=== PATIENT | male | born 1990 | race African-American/Black ===

== ENCOUNTER 2023-11-21 11:27 | Emergency (ER) | payer MEDICAID ==
[~2023-11-21] VITALS: Ht 188 cm; Wt 104.3 kg
[2023-11-21 15:41] VITALS: BP 132/87; PULSE 87; RESP 17; TEMP 97.8; O2SAT 97
== END 2023-11-21 15:40 | disposition home or self-care (01) ==
LOC: ER 11:27
DX: S09.90XA Unspecified injury of head, initial encounter (principal); W20.8XXA Other cause of strike by thrown, projected or falling object, initial encounter; Y93.89 Activity, other specified; Y92.89 Other specified places as the place of occurrence of the external cause; Y99.8 Other external cause status
CPT/HCPCS: 70450

== ENCOUNTER 2024-06-07 08:53 | Inpatient (IN) | payer MEDICAID, OTHER ==
[~2024-06-07] VITALS: Ht 188 cm; Wt 106.0 kg
[2024-06-07 09:31] LABS: Basophils # (auto) 0 10 ^3/uL (0-0.2); Basophils % (auto) 0.5 % (0.0-2.0); Eosinophils # (auto) 0.1 10 ^3/uL (0-0.8); Eosinophils % (auto) 1.5 % (0.0-7.0); Hematocrit 49.1 % (41.0-53.0); Hemoglobin 16.8 g/dL (13.5-17.5); Lymphocytes # (auto) 3.5 10 ^3/uL (0.4-5.4); Lymphocytes % (auto) 38.8 % (10.0-50.0); Mean Corpuscular Hemoglobin 31.8 pg (28.0-32.0); Mean Corpuscular Hgb Conc. 34.3 g/dL (32.0-36.0); Mean Corpuscular Volume 92.7 fL (80.0-100.0); Monocytes # (auto) 0.6 10 ^3/uL (0-1.3); Monocytes % (auto) 6.5 % (0.0-12.0); Neutrophils # (auto) 4.7 10 ^3/uL (1.6-8.6); Neutrophils % (auto) 52.7 % (37.0-80.0); Nucleated Red Blood Cells % 0.1 %; Platelet Count (auto) 245 10^3/uL (140-450); Red Blood Cells 5.29 10^6/uL (4.5-5.90); Red Cell Distribution Width 13.3 % (11.8-14.3); White Blood Cell 8.9 10^3/uL (4.4-10.8)
[2024-06-07] MEDS: SODIUM CHLORIDE 0.9% 1,000 ML IV ONE ×2 (10:15→10:52)
[2024-06-07 10:18] LABS: Chloride 104 mmol/L (98-107); Potassium 3.7 mmol/L (3.5-5.1); Sodium 139 mmol/L (136-145)
[2024-06-07 10:19] LABS: Anion Gap 5 (5-15); Calcium 9.8 mg/dL (8.7-10.4); Carbon Dioxide 30 mmol/L (20-30)
[2024-06-07 10:24] LABS: BUN/Creatinine Ratio 7.5 (10.0-20.0); Blood Urea Nitrogen 8 mg/dL (9-23); Glucose 86 mg/dL (74-106)
[2024-06-07 10:38] VITALS: PULSE 67; RESP 16; O2SAT 97
[2024-06-07] MEDS: THIAMINE 100mg/ml INJ (200mg/2ml VIAL) IV ONE (10:52)
[2024-06-07 13:59] LABS: Amphetamine Screen, Urine Neg (NEGATIVE); Barbiturate Scree,Urine Neg (NEGATIVE); Benzodiazephine Screen, Urine Neg (NEGATIVE); Cannabinoid Screen, Urine Pos (NEGATIVE); Cocaine Screen, Urine Neg (NEGATIVE); Opiate Scree,Urine Neg (NEGATIVE); Phencyclidine Screen, Urine Neg (NEGATIVE)
[2024-06-07] MEDS ORDERED: HYDROmorphone HCL 2 MG/ML VL/or syr IV PRN (14:30)
[2024-06-07] MEDS ORDERED: ONDANSETRON HCL 4 MG/2 ML VIAL IV PRN (14:30)
[2024-06-07] MEDS ORDERED: DOCUSATE SOD 100 MG CAP PO PRN (14:30)
[2024-06-07] MEDS ORDERED: ACETAMINOPHEN 325 MG TAB PO PRN (14:30)
[2024-06-07] MEDS ORDERED: LORazepam 2MG/ML-1ML VIAL IV PRN (14:30)
[2024-06-07] MEDS ORDERED: HYDROcodone-ACET 5/325MG TAB PO PRN (14:30)
[2024-06-07 21:15] VITALS: BP 132/90; PULSE 68; RESP 20; TEMP 98; O2SAT 96
[2024-06-07] MEDS: SODIUM CHLOR 0.9% PF (SALINE LOCK) 10ML VIAL/SYR IV SCH (22:00)
[2024-06-07 22:15] VITALS: PULSE 68; RESP 17; O2SAT 0
[2024-06-08] VITALS (9 sets, daily range): BP systolic 113–145; BP diastolic 68–91; PULSE 60–88; RESP 16–20; TEMP 97.6–98.5; O2SAT 96–98
[2024-06-08 07:02] LABS: Basophils # (auto) 0 10 ^3/uL (0-0.2); Basophils % (auto) 0.3 % (0.0-2.0); Eosinophils # (auto) 0.3 10 ^3/uL (0-0.8); Eosinophils % (auto) 3.1 % (0.0-7.0); Hematocrit 45.7 % (41.0-53.0); Hemoglobin 15.7 g/dL (13.5-17.5); Lymphocytes # (auto) 3.9 10 ^3/uL (0.4-5.4); Mean Corpuscular Hemoglobin 31.6 pg (28.0-32.0); Mean Corpuscular Hgb Conc. 34.5 g/dL (32.0-36.0); Mean Corpuscular Volume 91.7 fL (80.0-100.0); Monocytes # (auto) 0.8 10 ^3/uL (0-1.3); Monocytes % (auto) 8.1 % (0.0-12.0); Neutrophils # (auto) 4.7 10 ^3/uL (1.6-8.6); Neutrophils % (auto) 48.5 % (37.0-80.0); Nucleated Red Blood Cells % 0.1 %; Platelet Count (auto) 216 10^3/uL (140-450); Red Blood Cells 4.98 10^6/uL (4.5-5.90); Red Cell Distribution Width 13.2 % (11.8-14.3); White Blood Cell 9.7 10^3/uL (4.4-10.8)
[2024-06-08 07:12] LABS: Alanine Aminotransferase 26 U/L (7-40); Albumin 4.1 g/dL (3.2-4.8); Alkaline Phosphatase 81 U/L (46-116); Anion Gap 7 (5-15); Aspartate Aminotransferase 19 U/L (13-40); BUN/Creatinine Ratio 6.6 (10.0-20.0); Bilirubin, Total 0.6 mg/dL (0.2-1.0); Blood Urea Nitrogen 7 mg/dL (9-23); Carbon Dioxide 27 mmol/L (20-30); Chloride 105 mmol/L (98-107); Glucose 82 mg/dL (74-106); Potassium 3.8 mmol/L (3.5-5.1); Sodium 139 mmol/L (136-145); Total Protein 6.5 g/dL (5.7-8.2)
[2024-06-08] MEDS: FOLIC ACID 1 MG TAB PO SCH (09:53)
[2024-06-08] MEDS: THIAMINE HCL 100 MG TAB PO SCH (09:53)
[2024-06-08] MEDS: ERGOCALCIFEROL 50,000 UNIT(1.25MG) CAP PO SCH (09:53)
[2024-06-08] MEDS: ENOXAPARIN SOD 40 MG/0.4 ML SYRINGE SC SCH (10:00)
[2024-06-08] MEDS: CYANOCOBALAMIN (B-12) 1000 MCG/1 ML VIAL IM ONE (16:28)
[2024-06-09 01:09] VITALS: BP 117/82; PULSE 66; RESP 18; TEMP 98.1; O2SAT 98
[2024-06-09 05:00] VITALS: BP 127/78; PULSE 68; RESP 18; TEMP 97.9; O2SAT 97
[2024-06-09 09:19] VITALS: BP 132/75; PULSE 60; RESP 15; TEMP 98.2; O2SAT 95
[2024-06-09 12:53] VITALS: BP 152/103; PULSE 82; RESP 15; TEMP 97.9; O2SAT 97
[2024-06-09 14:29] LABS: Basophils # (auto) 0.1 10 ^3/uL (0-0.2); Basophils % (auto) 0.5 % (0.0-2.0); Eosinophils # (auto) 0.4 10 ^3/uL (0-0.8); Eosinophils % (auto) 3.4 % (0.0-7.0); Hematocrit 48.9 % (41.0-53.0); Hemoglobin 16.8 g/dL (13.5-17.5); Lymphocytes % (auto) 35.3 % (10.0-50.0); Mean Corpuscular Hemoglobin 31.6 pg (28.0-32.0); Mean Corpuscular Hgb Conc. 34.4 g/dL (32.0-36.0); Monocytes # (auto) 0.9 10 ^3/uL (0-1.3); Neutrophils % (auto) 52.8 % (37.0-80.0); Platelet Count (auto) 243 10^3/uL (140-450); Red Blood Cells 5.32 10^6/uL (4.5-5.90); Red Cell Distribution Width 13.5 % (11.8-14.3); White Blood Cell 11.4 10^3/uL (4.4-10.8)
[2024-06-09 14:45] LABS: Alanine Aminotransferase 28 U/L (7-40); Albumin 4.3 g/dL (3.2-4.8); Alkaline Phosphatase 95 U/L (46-116); Anion Gap 6 (5-15); Aspartate Aminotransferase 20 U/L (13-40); BUN/Creatinine Ratio 5.3 (10.0-20.0); Blood Urea Nitrogen 6 mg/dL (9-23); Calcium 9.8 mg/dL (8.7-10.4); Carbon Dioxide 26 mmol/L (20-30); Chloride 104 mmol/L (98-107); Glucose 90 mg/dL (74-106); Potassium 3.9 mmol/L (3.5-5.1); Sodium 136 mmol/L (136-145)
[2024-06-09 14:46] LABS: Bilirubin, Total 0.5 mg/dL (0.2-1.0); Total Protein 7.1 g/dL (5.7-8.2)
[2024-06-09] MEDS ORDERED: CYAN-17 PO (16:05)
[2024-06-09] MEDS ORDERED: CHOL500021 OR (16:05)
[2024-06-09 16:32] VITALS: BP 132/69; PULSE 59; RESP 17; TEMP 98; O2SAT 99
[2024-06-09 16:47] VITALS: BP 132/69; PULSE 59; RESP 17; TEMP 98; O2SAT 99
== END 2024-06-09 17:28 | disposition home or self-care (01) | DRG 816 ==
LOC: ER 08:53 → EDBD 08:53 → CENTRAL 14:20 → TELE 14:20 → CENTRAL 21:10 → TELE-CENTR 21:25 → CENTRAL 06-09 01:42
PROVIDERS: ADMIT Internal Medicine; ATTEND Internal Medicine
DX: T51.91XA Toxic effect of unspecified alcohol, accidental (unintentional), initial encounter (principal); G92.8 Other toxic encephalopathy; E86.0 Dehydration; E16.2 Hypoglycemia, unspecified; F10.129 Alcohol abuse with intoxication, unspecified; E55.9 Vitamin D deficiency, unspecified; Y90.0 Blood alcohol level of less than 20 mg/100 ml; Y92.002 Bathroom of unspecified non-institutional (private) residence as the place of occurrence of the external cause
CPT/HCPCS: 36415; 70450; 80048; 80053; 80307; 80320; 82306; 82607; 83036; 84443; 84484; 85025; 93005; 93306; 93886; G0378